=== PATIENT | female | born 1950 | race Caucasian/White ===

== ENCOUNTER → 2017-07-28 | Outpatient (CLI) | payer OTHER, BC ==
[~2017-07-28] MED LIST: GADAVIST IV PRN
--- NOTE | 2017-07-28 08:18 | DIAGNOSTIC IMAGING REPORT ---
ADDENDUM Addendum: Given the history of breast cancer, these lesions are consistent with metastatic disease. Electronically signed by: Shoaib Garcia M.D. 07/28/2017 8:22 AM Dictated Date/Time: 07/28/2017 8:21 AM ORIGINAL REPORT MRI OF THE PELVIS WITH AND WITHOUT CONTRAST CLINICAL HISTORY: Breast cancer. PET/CT demonstrating sclerotic lesion with abnormal uptake within the right pubic bone. COMPARISON STUDY: None available at time of interpretation. TECHNIQUE: Utilizing a 1.5 Jud magnet, multiplanar, multiecho imaging of the pelvis and hips was performed pre and postcontrast administration. Injection of 6.5 cc of Gadavist IV was uneventful. FINDINGS: Note is made of several T1 hypointense, T2 hyperintense enhancing lesions within the pelvic bones, the largest of which is a 3 x 2.4 cm lesion within the medial right pubic bone that extends to the symphysis pubis and likely corresponds to the abnormality on prior PET by report. There is a similar-appearing but smaller 1.3 cm focus within the medial left pubic bone and 1.1 cm focus within the medial right pubic bone. There is also a 1.3 cm left iliac crest lesion. Sacroiliac joints and symphysis pubis are intact. There is no pelvic lymphadenopathy. No fluid collection is identified within the pelvis. IMPRESSION: Multiple foci of marrow replacement within the pelvis, including a 3 x 2.4 cm medial right pubic bone lesion. These lesions are highly suggestive of metastatic disease. Electronically signed by: Shoaib Garcia M.D. 07/28/2017 8:16 AM Dictated Date/Time: 07/28/2017 7:57 AM
== END | disposition home or self-care (01) ==
LOC: C.MRI 06:24
PROVIDERS: ATTEND Internal Medicine Hematology & Oncology
DX: C50.911 Malignant neoplasm of unspecified site of right female breast (principal); Z17.0 Estrogen receptor positive status [ER+]; C50.912 Malignant neoplasm of unspecified site of left female breast; C79.51 Secondary malignant neoplasm of bone; D75.89 Other specified diseases of blood and blood-forming organs